=== PATIENT | male | born 1970 | race Caucasian/White ===

== ENCOUNTER 2018-01-21 13:04 | Inpatient (IN) | payer MEDICARE, OTHER ==
[~2018-01-21] VITALS: Ht 172.7 cm; Wt 165.3 kg
[2018-01-21 13:12] VITALS: BP 160/86; PULSE 75; RESP 18; TEMP 98.5; O2SAT 97
--- NOTE | 2018-01-21 13:40 | PD ---
HPI Chief Complaint: Psychiatric Symptoms Time Seen by Provider: 13:32 Travel History International Travel<30 days: No Contact w/Intl Traveler<30days: No Traveled to known affect area: No History of Present Illness HPI 47-year-old male presents to the emergency room under a Veloz act initiated by police department. Patient is a poor historian. He is difficult to extract information from. States he called 911 but did not give a reason why. When on first arrived, he asked the officer to come sit down with him. He told the officer that he wished he would leave his gun for him to use later. Patient endorses suicidal ideation at this time. States he is trying to stay calm. States he is a good person and he does not want to act out. Patient has been previously prescribed medication but refuses to describe what these medications were for. He refuses to discuss his medical problems stating that Obama probably leaked them anyway. He denies any medical complaints at this time. PFSH Past Medical History ?: Not Social History Tobacco Use: No Allergies-Medications (Allergen,Severity, Reaction): Coded Allergies: No Known Allergies (Unverified , 01/21/18) Reported Meds & Prescriptions Reported Meds & Active Scripts Active Active Prescriptions or Reported Medications Unobtainable Review of Systems Except as stated in HPI: all other systems reviewed are Neg Physical Exam Narrative GENERAL: Well-nourished, morbidly obese male in no acute distress. Afebrile. Ambulatory. SKIN: Focused skin assessment warm/dry. HEAD: Normocephalic. EYES: No scleral icterus. No injection or drainage. NECK: Supple, trachea midline. No JVD or lymphadenopathy. CARDIOVASCULAR: Regular rate and rhythm without murmurs, gallops, or rubs. RESPIRATORY: Breath sounds equal bilaterally. No accessory muscle use. PSYCHIATRIC: No delusional thought processes. No hallucinations. Flat affect. Data Data Last Documented VS Vital Signs Date Time Temp Pulse Resp B/P (MAP) Pulse Ox O2 Delivery O2 Flow Rate FiO2 01/21/18 13:12 98.5 75 18 160/86 (110) 97 Orders Orders Complete Blood Count With Diff (01/21/18 13:32) Comprehensive Metabolic Panel (01/21/18 13:32) Thyroid Stimulating Hormone (01/21/18 13:32) Drug Screen, Random Urine (01/21/18 13:32) Alcohol (Ethanol) (01/21/18 13:32) Salicylates (Aspirin) (01/21/18 13:32) Tylenol (Acetaminophen) (01/21/18 13:32) Psych Screen (01/21/18 13:32) Diet Regular Basic (01/21/18 Dinner) Admit To Inpatient Psych (01/21/18 ) Vital Signs (Adult) RAJINDER.Q12H.E (01/21/18 16:08) Activity Oob Ad Neelima (01/21/18 16:08) Lorazepam (Ativan) (01/21/18 16:15) Lorazepam Inj (Ativan Inj) (01/21/18 16:15) Acetaminophen (Tylenol) (01/21/18 16:15) Magnesium Hydroxide Liq (Milk Of Magnesi (01/21/18 16:15) Al-Mag Hy-Si 40-40-4 Mg/Ml Liq (Mag-Al P (01/21/18 16:15) Nicotine 21 Mg Patch.24 Hr (Habitrol 21 (01/21/18 17:00) Basic Metabolic Panel (Bmp) (01/22/18 06:00) Lipid Profile (01/22/18 06:00) Hemoglobin (Hgb) A1c (01/22/18 06:00) Aripiprazole (Abilify) (01/21/18 17:00) Labs Laboratory Tests Test 01/21/18 13:22 01/21/18 13:45 White Blood Count 8.5 TH/MM3 Red Blood Count 4.31 MIL/MM3 Hemoglobin 13.1 GM/DL Hematocrit 39.2 % Mean Corpuscular Volume 90.9 FL Mean Corpuscular Hemoglobin 30.3 PG Mean Corpuscular Hemoglobin Concent 33.3 % Red Cell Distribution Width 14.2 % Platelet Count 229 TH/MM3 Mean Platelet Volume 8.2 FL Neutrophils (%) (Auto) 72.3 % Lymphocytes (%) (Auto) 20.0 % Monocytes (%) (Auto) 6.3 % Eosinophils (%) (Auto) 0.8 % Basophils (%) (Auto) 0.6 % Neutrophils # (Auto) 6.2 TH/MM3 Lymphocytes # (Auto) 1.7 TH/MM3 Monocytes # (Auto) 0.5 TH/MM3 Eosinophils # (Auto) 0.1 TH/MM3 Basophils # (Auto) 0.1 TH/MM3 CBC Comment DIFF FINAL Differential Comment Blood Urea Nitrogen 13 MG/DL Creatinine 0.98 MG/DL Random Glucose 83 MG/DL Total Protein 8.1 GM/DL Albumin 3.9 GM/DL Calcium Level 8.8 MG/DL Alkaline Phosphatase 127 U/L Aspartate Amino Transf (AST/SGOT) 46 U/L Alanine Aminotransferase (ALT/SGPT) 47 U/L Total Bilirubin 0.5 MG/DL Sodium Level 139 MEQ/L Potassium Level 3.6 MEQ/L Chloride Level 105 MEQ/L Carbon Dioxide Level 23.5 MEQ/L Anion Gap 11 MEQ/L Estimat Glomerular Filtration Rate 82 ML/MIN Thyroid Stimulating Hormone 3rd Gen 1.620 uIU/ML Salicylates Level LESS THAN 1.7 MG/DL Acetaminophen Level LESS THAN 2.0 MCG/ML Ethyl Alcohol Level LESS THAN 3 MG/DL Urine Opiates Screen NEG Urine Barbiturates Screen NEG Urine Amphetamines Screen NEG Urine Benzodiazepines Screen NEG Urine Cocaine Screen NEG Urine Cannabinoids Screen POS MDM Medical Decision Making Medical Screen Exam Complete: Yes Emergency Medical Condition: Yes Medical Record Reviewed: Yes Differential Diagnosis Substance-induced mood disorder, bipolar disorder, schizophrenia Narrative Course 47-year-old male presents to the emergency room for evaluation of suicidal ideation. He called 911 and asked the railroad police to leave his gun that he could kill himself. Patient is very guarded during history and physical exam. He has a very flat affect. He admits to suicidal ideation. Denies any physical complaints. CBC and CMP are essentially unremarkable. Toxicology is negative except for cannabinoids. He is medically cleared for psychiatric evaluation. Scripts Unable to Obtain Active Prescriptions or Reported Meds Condition: Vicenta Clazada January 21, 2018 13:40
[2018-01-21 13:49] LABS: AUTOMATED NEUTROPHIL # 6.2 TH/MM3 (1.8-7.7); BASOPHIL # 0.1 TH/MM3 (0-0.2); BASOPHIL % 0.6 % (0.0-2.0); EOSINOPHIL # 0.1 TH/MM3 (0-0.4); EOSINOPHIL % 0.8 % (0.0-4.0); HEMATOCRIT 39.2 % (39.0-51.0); HEMOGLOBIN 13.1 GM/DL (13.0-17.0); LYMPHOCYTE # 1.7 TH/MM3 (1.0-4.8); MEAN CELL VOLUME 90.9 FL (80.0-100.0); MEAN CORPUSCULAR HEMOGLOBIN 30.3 PG (27.0-34.0); MEAN CORPUSCULAR HGB CONC 33.3 % (32.0-36.0); MEAN PLATELET VOLUME 8.2 FL (7.0-11.0); MONO % 6.3 % (0.0-8.0); MONOCYTE # 0.5 TH/MM3 (0-0.9); NEUT % 72.3 % (16.0-70.0); PLATELET COUNT 229 TH/MM3 (150-450); RED BLOOD COUNT 4.31 MIL/MM3 (4.50-5.90); RED CELL DISTRIBUTION WIDTH 14.2 % (11.6-17.2); WHITE BLOOD COUNT 8.5 TH/MM3 (4.0-11.0)
[2018-01-21 14:03] LABS: ALBUMIN 3.9 GM/DL (3.4-5.0); AST (GOT) 46 U/L (15-37); BICARBONATE 23.5 MEQ/L (21.0-32.0); BLOOD UREA NITROGEN 13 MG/DL (7-18); CALCIUM 8.8 MG/DL (8.5-10.1); CHLORIDE 105 MEQ/L (98-107); CREATININE 0.98 MG/DL (0.60-1.30); GLOMERULAR FILTRATION RATE 82 ML/MIN (>89); GLUCOSE,RANDOM 83 MG/DL (74-106); SODIUM (NA) 139 MEQ/L (136-145)
[2018-01-21 14:04] LABS: ALT (GPT) 47 U/L (12-78)
[2018-01-21 14:05] LABS: ACETAMINOPHEN LESS THAN 2.0 MCG/ML (10.0-30.0)
[2018-01-21 14:13] LABS: ALKALINE PHOSPHATASE 127 U/L (45-117); TOTAL BILIRUBIN ADULT 0.5 MG/DL (0.2-1.0); TOTAL PROTEIN 8.1 GM/DL (6.4-8.2)
[2018-01-21] MEDS ORDERED: LORazepam 0.5 MG TAB PO PRN (16:15)
[2018-01-21] MEDS ORDERED: LORazepam 2 MG/ML VIAL IM PRN ×2 (16:15)
[2018-01-21] MEDS ORDERED: ALUMINUM/MAGNESIUM/SIMETH 30 ML CUP PO PRN (16:15)
[2018-01-21] MEDS ORDERED: MAGNESIUM HYDROXIDE SUSP 30 ML CUP PO PRN (16:15)
--- NOTE | 2018-01-21 16:50 | HHI.HP ---
Provisional Diagnosis Admission Date January 21, 2018 at 16:10 [place] I. 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 Deferred [place] III. Obesity [place] IV. Poor insight [place] V. 35 Certification of Person's Competence To Provide Express and Informed Consent I have personally examined Danial Baca , a person being served at [facility] on, January 21, 2018 16:45. Express and informed consent means consent voluntarily given in writing, by a competent person, after sufficient explanation and disclosure of the subject matter involved to enable the person to make a knowing and willful decision without any element of force, fraud, deceit, duress, or other form of constraint or coercion. This person is 18 years of age or older, is not now known to be incompetent to consent to treatment with a guardian advocate, and does not have a health care surrogate or proxy currently making medical treatment decisions. I have found this person to be one of the following: [] Competent to provide express and informed consent, as defined above, for voluntary admission to this facility and is competent to provide express and informed consent for treatment. He/she has the consistent capacity to make well reasoned, willful, and knowing decisions concerning his or her medical or mental health treatment. The person fully and consistently understands the purpose of the admission for examination/placement and is fully capable of personally exercising all rights [place] Incompetent to provide express and informed consent to voluntary admission, and this is incompetent to provide express and informed consent to treatment. The person must be transferred to involuntary status and a petition for a guardian advocate filed with the Circuit Court. [x] Refusing to provide express and informed consent to voluntary admission but is competent to provide express and informed consent for treatment. The person must be discharged or transferred to involuntary status. Form shall be completed within 24 hours of a person's arrival at the receiving facility and filed in the clinical record of each person: 1. Admitted on a voluntary basis 2. Permitted to provide express and informed consent to his/her own treatment 3. Allowed to transfer from involuntary to voluntary status 4. Prior to permitting a person to consent to his or her own treatment after having been previously found incompetent to consent to treatment. History of Present Illness Capacity: Has Capacity HPI 47-year-old male presents to the emergency room under a Veloz act initiated by police department. Patient is a poor historian. He is difficult to extract information from. States he called 911 but did not give a reason why. When on first arrived, he asked the officer to come sit down with him. He told the officer that he wished he would leave his gun for him to use later. Patient endorses suicidal ideation at this time. States he is trying to stay calm. States he is a good person and he does not want to act out. Patient has been previously prescribed medication but refuses to describe what these medications were for. He refuses to discuss his medical problems stating that Obama probably leaked them anyway. He denies any medical complaints at this time. Review of Systems Constitutional: DENIES: Diaphoretic episodes, Fatigue, Fever, Weight gain, Weight loss, Chills, Dizziness, Change in appetite, Night Sweats Endocrine: DENIES: Heat/cold intolerance, Polydipsia, Polyuria, Polyphagia Eyes: DENIES: Blurred vision, Diplopia, Eye inflammation, Eye pain, Vision loss , Photosensitivity, Double Vision Ears, nose, mouth, throat: DENIES: Tinnitus, Hearing loss, Vertigo, Nasal discharge, Oral lesions, Throat pain, Hoarseness, Ear Pain, Running Nose, Epistaxis, Sinus Pain, Toothache, Odynophagia Respiratory: DENIES: Apneas, Cough, Snoring, Wheezing, Hemoptysis, Sputum production, Shortness of breath Cardiovascular: DENIES: Chest pain, Palpitations, Syncope, Dyspnea on Exertion , PND, Lower Extremity Edema, Orthopnea, Claudication Gastrointestinal: DENIES: Abdominal pain, Black stools, Bloody stools, Constipation, Diarrhea, Nausea, Vomiting, Difficulty Swallowing, Anorexia Genitourinary: DENIES: Sexual dysfunction, Urinary frequency, Urinary incontinence, Urgency, Hematuria, Dysuria, Nocturia, Penile Discharge, Testicular Pain, Testicular Swelling Musculoskeletal: DENIES: Joint pain, Muscle aches, Stiffness, Joint Swelling, Back pain, Neck pain Integumentary: DENIES: Abnormal pigmentation, Nail changes, Pruritus, Rash Hematologic/lymphatic: DENIES: Bruising, Lymphadenopathy Immunologic/allergic: DENIES: Eczema, Urticaria Neurologic: DENIES: Abnormal gait, Headache, Localized weakness, Paresthesias, Seizures, Speech Problems, Tremor, Poor Balance Psychiatric: DENIES: Anxiety, Confusion, Mood changes, Depression, Hallucinations, Agitation, Suicidal Ideation, Homicidal Ideation, Delusions Past Psych History Violence risk - self (6 mos) Increased Substance Abuse History Drugs/Alcohol past 12 months Patient has history of alcohol and cannabis use disorder, he used cannabis and alcohol occasionally Past Family Social History Coded Allergies: No Known Allergies (Unverified , 01/21/18) Unable to Obtain Active Prescriptions or Reported Meds Current Medications Medications (Trade) Dose Ordered Sig/Jorge Route Start Time Stop Time Status Last Admin (Ativan) 1 mg Q6H PRN PO 01/21/18 16:15 (Ativan Inj) 1 mg Q6H PRN IM 01/21/18 16:15 (Tylenol) 650 mg Q4H PRN PO 01/21/18 16:15 (Milk Of Magnesia Liq) 30 ml DAILY PRN PO 01/21/18 16:15 (Mag-Al Plus Susp Liq) 30 ml Q6H PRN PO 01/21/18 16:15 (Habitrol 21 Mg Patch.24 Hr) 1 patch DAILY T-DERMAL 01/21/18 17:00 (Abilify) 5 mg DAILY PO 01/21/18 17:00 Family Psych History No family psychiatric history Social History Patient was born and raised in [place], he lives in the [place] with his mother, he is single, unemployed, supported by [facility], his highest level of education is 11th grade Patient's Strengths (min. 2) Family support, no violent Physical Exam No tremors, no EPS, no psychomotor agitation retardation, no catatonia, no stiffness Vital Signs Vital Signs Date Time Temp Pulse Resp B/P (MAP) Pulse Ox O2 Delivery O2 Flow Rate FiO2 01/21/18 13:12 98.5 75 18 160/86 (110) 97 Lab Results Test 01/21/18 13:22 01/21/18 13:45 White Blood Count 8.5 TH/MM3 Red Blood Count 4.31 MIL/MM3 Hemoglobin 13.1 GM/DL Hematocrit 39.2 % Mean Corpuscular Volume 90.9 FL Mean Corpuscular Hemoglobin 30.3 PG Mean Corpuscular Hemoglobin Concent 33.3 % Red Cell Distribution Width 14.2 % Platelet Count 229 TH/MM3 Mean Platelet Volume 8.2 FL Neutrophils (%) (Auto) 72.3 % Lymphocytes (%) (Auto) 20.0 % Monocytes (%) (Auto) 6.3 % Eosinophils (%) (Auto) 0.8 % Basophils (%) (Auto) 0.6 % Neutrophils # (Auto) 6.2 TH/MM3 Lymphocytes # (Auto) 1.7 TH/MM3 Monocytes # (Auto) 0.5 TH/MM3 Eosinophils # (Auto) 0.1 TH/MM3 Basophils # (Auto) 0.1 TH/MM3 CBC Comment DIFF FINAL Differential Comment Blood Urea Nitrogen 13 MG/DL Creatinine 0.98 MG/DL Random Glucose 83 MG/DL Total Protein 8.1 GM/DL Albumin 3.9 GM/DL Calcium Level 8.8 MG/DL Alkaline Phosphatase 127 U/L Aspartate Amino Transf (AST/SGOT) 46 U/L Alanine Aminotransferase (ALT/SGPT) 47 U/L Total Bilirubin 0.5 MG/DL Sodium Level 139 MEQ/L Potassium Level 3.6 MEQ/L Chloride Level 105 MEQ/L Carbon Dioxide Level 23.5 MEQ/L Anion Gap 11 MEQ/L Estimat Glomerular Filtration Rate 82 ML/MIN Thyroid Stimulating Hormone 3rd Gen 1.620 uIU/ML Salicylates Level LESS THAN 1.7 MG/DL Acetaminophen Level LESS THAN 2.0 MCG/ML Ethyl Alcohol Level LESS THAN 3 MG/DL Urine Opiates Screen NEG Urine Barbiturates Screen NEG Urine Amphetamines Screen NEG Urine Benzodiazepines Screen NEG Urine Cocaine Screen NEG Urine Cannabinoids Screen POS Mental Status Examination Appearance: Dirty, Disheveled Consciousness: Alert Orientation: x4 Motor Activity: Normal gait Speech: Unremarkable Language: Adequate Fund of Knowledge: Adequate Attention and Concentration: Adequate Memory: Unremarkable Mood: Appropriate Affect: Appropriate Thought Process & Associations: Loose associations, Disorganized Thought Content: Bizarre thinking Hallucination Type: None Delusion Type: Bizarre, Paranoid Suicidal Ideation: No Suicidal Plan: No Suicidal Intention: No Homicidal Ideation: No Homicidal Plan: No Homicidal Intention: No Insight: Poor Judgment: Poor Assessment & Plan Problem List: (1) Schizoaffective disorder ICD Codes: F25.9 - Schizoaffective disorder, unspecified Assessment & Plan: Patient is acutely psychotic. Disorganized, paranoid, internally preoccupied, noncompliant with psychotropics with prominent reality distortion. He needs psychiatric hospitalization for stabilization. We will start Abilify 5 mg at bedtime. Consult psychiatry for second opinion. Transfer patient to 26[address] the unit. Brief supportive psychotherapy, psychoeducation and motivation provided. 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 Assessment & Plan Estimated LOS: Jeffry Bundy MD January 21, 2018 16:50
[2018-01-21] MEDS: NICOTINE 21 MG/24 HR PATCH T-DERMAL SCH (17:00)
[2018-01-21 17:25] VITALS: BP 132/60; PULSE 80; RESP 20; TEMP 98.9; O2SAT 95
[2018-01-21 18:20] VITALS: BP 144/67; PULSE 80; RESP 18; TEMP 98.7; O2SAT 95
[2018-01-21] MEDS: ARIPiprazole 5 MG TAB PO SCH (18:29)
[2018-01-22 06:40] VITALS: BP 128/73; PULSE 74; RESP 18; TEMP 97.6; O2SAT 99
[2018-01-22] MEDS: NICOTINE 21 MG/24 HR PATCH T-DERMAL SCH (09:00)
[2018-01-22] MEDS: ARIPiprazole 5 MG TAB PO SCH (10:12)
[2018-01-22 12:36] LABS: BICARBONATE 25.8 MEQ/L (21.0-32.0); BLOOD UREA NITROGEN 16 MG/DL (7-18); CALCIUM 8.9 MG/DL (8.5-10.1); CHLORIDE 105 MEQ/L (98-107); CHOLESTEROL 144 MG/DL (120-200); CHOLESTEROL/ HDL RATIO 4.98 RATIO; CREATININE 0.95 MG/DL (0.60-1.30); GLOMERULAR FILTRATION RATE 85 ML/MIN (>89); GLUCOSE,RANDOM 90 MG/DL (74-106); HDL CHOLESTEROL 28.9 MG/DL (40.0-60.0); LDL CHOLESTEROL 84 MG/DL (0-99); SODIUM (NA) 139 MEQ/L (136-145); TRIGLYCERIDES 154 MG/DL (42-150)
--- NOTE | 2018-01-22 15:31 | HHI.PYPN ---
Subjective Remarks Chart reviewed and discussed with nursing staff. Patient is lying in his bed, naked under the covers. Nursing staff report that he has been out of his room naked or with a towel covering his private area. They have had to redirect him several times. Urvashi RN and I spoke with patient, he demanded that we get his shoes (Crocs) now because he has a metal robbin in his leg and he needs them to walk. He also wanted a phone number out of his cell phone. When we did not stop to retrieve these items he became belligerent and loud. He was kicking the wall and using inappropriate language. He was medicated with Atrax and did calm. He denies AVH. Denies SI/HI. Demanding a definitive answer regarding his exact discharge date. Mental Status Examination Appearance: Dirty, Disheveled Consciousness: Alert Orientation: x4 Motor Activity: Normal gait Speech: Unremarkable Language: Adequate Fund of Knowledge: Adequate Attention and Concentration: Adequate Memory: Unremarkable Mood: Appropriate Affect: Appropriate Thought Process & Associations: Loose associations, Disorganized Thought Content: Bizarre thinking Hallucination Type: None Delusion Type: Bizarre, Paranoid Suicidal Ideation: No Suicidal Plan: No Suicidal Intention: No Homicidal Ideation: No Homicidal Plan: No Homicidal Intention: No Insight: Poor Judgment: Poor Results Labs Test 01/22/18 11:08 Blood Urea Nitrogen 16 MG/DL Creatinine 0.95 MG/DL Random Glucose 90 MG/DL Calcium Level 8.9 MG/DL Sodium Level 139 MEQ/L Potassium Level 4.4 MEQ/L Chloride Level 105 MEQ/L Carbon Dioxide Level 25.8 MEQ/L Anion Gap 8 MEQ/L Estimat Glomerular Filtration Rate 85 ML/MIN Triglycerides Level 154 MG/DL Cholesterol Level 144 MG/DL LDL Cholesterol 84 MG/DL HDL Cholesterol 28.9 MG/DL Cholesterol/HDL Ratio 4.98 RATIO Vitals/IOs Vital Signs Date Time Temp Pulse Resp B/P (MAP) Pulse Ox O2 Delivery O2 Flow Rate FiO2 01/22/18 06:40 97.6 74 18 128/73 (91) 99 01/21/18 17:25 Room Air Intake and Output 01/22/18 01/22/18 01/23/18 08:00 16:00 00:00 Intake Total 720 ml Balance 720 ml Assessment & Plan Problem List: (1) Schizoaffective disorder ICD Codes: F25.9 - Schizoaffective disorder, unspecified Assessment & Plan: Patient very agitated today. Demanding his shoes and cell phone. When the staff did not leija to obtain his things he started yelling and acting out. Staff also report that he has been leaving his room naked or with a towel covering his private area. He told staff that he will only speak with his mother. He denies auditory and visual hallucinations. He states he is medication compliant and that the provider should note this in his chart. He continues to be paranoid and demonstrates little insight to his mental illness. Assessment & Plan Estimated LOS: days Justification for Cont. Inpt. Moving this patient to a lower level of care may result in his decompensation. Elle Smith January 22, 2018 15:31
[2018-01-22 18:00] VITALS: BP 158/81; PULSE 84; RESP 19; TEMP 97.5; O2SAT 98
[2018-01-23] MEDS: LORazepam 1 MG TAB PO PRN ×2 (04:52→21:23)
[2018-01-23 05:12] VITALS: BP 154/91; PULSE 72; RESP 18; TEMP 97.9; O2SAT 97
[2018-01-23] MEDS: NICOTINE 21 MG/24 HR PATCH T-DERMAL SCH (09:00)
[2018-01-23] MEDS: ARIPiprazole 5 MG TAB PO SCH (09:29)
--- NOTE | 2018-01-23 12:32 | PD.PSY.CON ---
Provisional Diagnosis Admission Date January 21, 2018 at 16:10 Alexander I. 1. Schizoaffective disorder, bipolar type 2. Urine toxicology positive for cannabinoids Alexander II. 1. Rule out some degree of intellectual disability History of Present Illness Service Psychiatry Consult Requested By Dr. Yoon Reason for Consult Second opinion for involuntary psychiatric hospitalization Primary Care Physician Unknown HPI From Dr. Yoon's H&P: 47-year-old male presents to the emergency room under a Veloz act initiated by police department. Patient is a poor historian. He is difficult to extract information from. States he called 911 but did not give a reason why. When on first arrived, he asked the officer to come sit down with him. He told the officer that he wished he would leave his gun for him to use later. Patient endorses suicidal ideation at this time. States he is trying to stay calm. States he is a good person and he does not want to act out. Patient has been previously prescribed medication but refuses to describe what these medications were for. He refuses to discuss his medical problems stating that Obama probably leaked them anyway. He denies any medical complaints at this time. On my examination today, 01/23: Patient seen and examined. Chart reviewed. Case discussed with nursing staff. On my examination today, patient presents as quite irritable and demanding. He seems quite paranoid and refuses to sit for the interview. I endeavor to introduce myself and discuss the purpose of my evaluation, but the patient refuses to speak with me at this time, saying he needs to speak with his mother. He seems somewhat intellectually limited on exam, and his frustration tolerance is quite poor. After rebuffing my efforts to speak with him, he follows me in the hallway and blocks my entrance into the nursing station for a time in a fairly menacing manner. He then harangues me through the nursing station glass. He tells me in a fairly threatening manner, "you'll have your time." Psychiatric interview is limited because of patient's uncooperativeness , and I am unable to obtain any meaningful past psychiatric, family, chemical dependency or social history for the same reason. No evident side effects from medications. No physical complaints. Review of Systems ROS Limitations: Uncooperative, Psychotic, Poor Historian Except as stated in HPI: all other systems reviewed are Neg Past Family Social History Coded Allergies: No Known Allergies (Unverified , 01/21/18) Past Medical History See EMR. Unable to Obtain Active Prescriptions or Reported Meds Current Medications Medications (Trade) Dose Ordered Sig/Jorge Route Start Time Stop Time Status Last Admin (Ativan) 1 mg Q6H PRN PO 01/21/18 16:15 01/23/18 04:52 (Ativan Inj) 1 mg Q6H PRN IM 01/21/18 16:15 (Tylenol) 650 mg Q4H PRN PO 01/21/18 16:15 (Milk Of Magnesia Liq) 30 ml DAILY PRN PO 01/21/18 16:15 (Mag-Al Plus Susp Liq) 30 ml Q6H PRN PO 01/21/18 16:15 (Habitrol 21 Mg Patch.24 Hr) 1 patch DAILY T-DERMAL 01/21/18 17:00 (Abilify) 5 mg DAILY PO 01/21/18 17:00 01/23/18 09:29 Patient's Strengths (min. 2) In a monitored setting. Verbally fluent. Physical Exam Physical examination completed by ED provider. On my examination today, the patient appears to be in no acute physical distress. No motor abnormalities noted. Labs and vitals reviewed: Vital Signs Vital Signs Date Time Temp Pulse Resp B/P (MAP) Pulse Ox O2 Delivery O2 Flow Rate FiO2 01/23/18 05:12 97.9 72 18 154/91 (112) 97 01/21/18 17:25 Room Air Lab Results Laboratory Tests Test 01/21/18 13:22 01/21/18 13:45 01/22/18 11:08 White Blood Count 8.5 TH/MM3 Red Blood Count 4.31 MIL/MM3 Hemoglobin 13.1 GM/DL Hematocrit 39.2 % Mean Corpuscular Volume 90.9 FL Mean Corpuscular Hemoglobin 30.3 PG Mean Corpuscular Hemoglobin Concent 33.3 % Red Cell Distribution Width 14.2 % Platelet Count 229 TH/MM3 Mean Platelet Volume 8.2 FL Neutrophils (%) (Auto) 72.3 % Lymphocytes (%) (Auto) 20.0 % Monocytes (%) (Auto) 6.3 % Eosinophils (%) (Auto) 0.8 % Basophils (%) (Auto) 0.6 % Neutrophils # (Auto) 6.2 TH/MM3 Lymphocytes # (Auto) 1.7 TH/MM3 Monocytes # (Auto) 0.5 TH/MM3 Eosinophils # (Auto) 0.1 TH/MM3 Basophils # (Auto) 0.1 TH/MM3 CBC Comment DIFF FINAL Differential Comment Blood Urea Nitrogen 13 MG/DL 16 MG/DL Creatinine 0.98 MG/DL 0.95 MG/DL Random Glucose 83 MG/DL 90 MG/DL Total Protein 8.1 GM/DL Albumin 3.9 GM/DL Calcium Level 8.8 MG/DL 8.9 MG/DL Alkaline Phosphatase 127 U/L Aspartate Amino Transf (AST/SGOT) 46 U/L Alanine Aminotransferase (ALT/SGPT) 47 U/L Total Bilirubin 0.5 MG/DL Sodium Level 139 MEQ/L 139 MEQ/L Potassium Level 3.6 MEQ/L 4.4 MEQ/L Chloride Level 105 MEQ/L 105 MEQ/L Carbon Dioxide Level 23.5 MEQ/L 25.8 MEQ/L Thyroid Stimulating Hormone 3rd Gen 1.620 uIU/ML Salicylates Level LESS THAN 1.7 MG/DL Acetaminophen Level LESS THAN 2.0 MCG/ML Ethyl Alcohol Level LESS THAN 3 MG/DL Urine Opiates Screen NEG Urine Barbiturates Screen NEG Urine Amphetamines Screen NEG Urine Benzodiazepines Screen NEG Urine Cocaine Screen NEG Urine Cannabinoids Screen POS Anion Gap 8 MEQ/L Estimat Glomerular Filtration Rate 85 ML/MIN Hemoglobin A1c 5.6 % Triglycerides Level 154 MG/DL Cholesterol Level 144 MG/DL LDL Cholesterol 84 MG/DL HDL Cholesterol 28.9 MG/DL Cholesterol/HDL Ratio 4.98 RATIO Mental Status Examination Appearance: Disheveled Consciousness: Alert Orientation: x4 Motor Activity: Normal gait Speech: Unremarkable Language: Adequate Fund of Knowledge: Inadequate Attention and Concentration: Adequate Memory: Unremarkable Mood: Appropriate Affect: Appropriate Thought Process & Associations: Other (Perseverative) Thought Content: Delusional Hallucination Type: None Delusion Type: Paranoid Suicidal Ideation: No (Unreliable to contract for safety) Homicidal Ideation: No Insight: Poor Judgment: Poor Assessment & Plan Problem List: (1) Schizoaffective disorder ICD Codes: F25.9 - Schizoaffective disorder, unspecified Assessment & Plan Given the circumstances of the patient's presentation here and his presentation on my examination today, I concur with Dr. Yoon that the patient meets criteria for involuntary psychiatric hospitalization under the Veloz act. I have completed the second opinion paperwork. I will titrate patient's Abilify to 10mg daily to target psychosis. Continue to monitor on the inpatient unit; low threshold for transfer to higher acuity unit should behavior deteriorate. Continue other medications and care as ordered. Discharge Planning Pending psychiatric stabilization. Patient requires ongoing hospitalization secondary to: med changes. Impairment in reality construction. Risk for decompensation in less restrictive environment. Problem Qualifiers (1) Schizoaffective disorder: Qualified Codes: F25.0 - Schizoaffective disorder, bipolar type German Titus MD January 23, 2018 12:32
[2018-01-23 13:12] LABS: HEMOGLOBIN A1C 5.6 % (4.3-6.0)
[2018-01-23 19:04] VITALS: BP 108/56; PULSE 66; RESP 18; TEMP 98.1; O2SAT 97
[2018-01-24] MEDS: LORazepam 1 MG TAB PO PRN ×3 (03:11→20:13)
[2018-01-24 07:10] VITALS: BP 133/75; PULSE 70; RESP 18; TEMP 98; O2SAT 99
[2018-01-24] MEDS: NICOTINE 21 MG/24 HR PATCH T-DERMAL SCH (09:00)
[2018-01-24] MEDS: ARIPiprazole 5 MG TAB PO SCH (09:23)
[2018-01-24] MEDS: ACETAMINOPHEN 325 MG TAB PO PRN ×2 (11:45→20:12)
--- NOTE | 2018-01-24 14:44 | HHI.PYPN ---
Subjective Remarks Reviewed electronic medical records and discuss case with staff. Staff reports the patient has remained guarded and suspicious. They report he has been a little more polite and a little less demanding. He is overly compliant with his Ativan requesting it every 6 hours "on the diet". Follow-up was performed and day room. Patient was found on the phone. When asked if I were able to talk to him patient replied, "for what?". When I explained to him my purpose he stated "I am fine that is all you are going to get from me". Mental Status Examination Appearance: Disheveled Consciousness: Alert Orientation: x4 Motor Activity: Normal gait Speech: Unremarkable Language: Adequate Fund of Knowledge: Inadequate Attention and Concentration: Adequate Memory: Unremarkable Mood: Appropriate Affect: Appropriate Thought Process & Associations: Other (Perseverative) Thought Content: Delusional Hallucination Type: None Delusion Type: Paranoid Suicidal Ideation: No (Unreliable to contract for safety) Homicidal Ideation: No Insight: Poor Judgment: Poor Results Vitals/IOs Vital Signs Date Time Temp Pulse Resp B/P (MAP) Pulse Ox O2 Delivery O2 Flow Rate FiO2 01/24/18 07:10 98.0 70 18 133/75 (94) 99 01/21/18 17:25 Room Air Assessment & Plan Problem List: (1) Schizoaffective disorder ICD Codes: F25.9 - Schizoaffective disorder, unspecified Assessment & Plan Estimated LOS: Patient will be really reevaluated by a psychiatrist tomorrow. Continue with treatment plan as ordered. Days Justification for Cont. Inpt. Moving this patient to a lower level of care would likely result in decompensation. Problem Qualifiers (1) Schizoaffective disorder: Qualified Codes: F25.0 - Schizoaffective disorder, bipolar type Micaela De Leon January 24, 2018 14:44
[2018-01-24 18:18] VITALS: BP 120/80; PULSE 80; RESP 18; TEMP 98; O2SAT 96
[2018-01-25] MEDS: LORazepam 1 MG TAB PO PRN (04:20)
[2018-01-25 06:15] VITALS: BP 132/70; PULSE 61; RESP 20; TEMP 97.6; O2SAT 96
[2018-01-25] MEDS: NICOTINE 21 MG/24 HR PATCH T-DERMAL SCH (09:00)
[2018-01-25] MEDS: ARIPiprazole 5 MG TAB PO SCH (09:21)
[2018-01-25] MEDS: ACETAMINOPHEN 325 MG TAB PO PRN (13:41)
[2018-01-25] MEDS ORDERED: ARIP1TAB12 PO (15:11)
--- NOTE | 2018-01-25 15:11 | HHI.DS ---
Psychiatry Discharge Summary Inpatient Psychiatric care?: Yes Advance Directive: No Mental Health AdvanceDirective: No Health Care Proxy: No Admission Admission Date January 21, 2018 at 16:10 Admission Diagnosis: (1) Schizoaffective disorder ICD Code: F25.9 - Schizoaffective disorder, unspecified Brief History From Dr. Yoon's H&P: 47-year-old male presents to the emergency room under a Veloz act initiated by police department. Patient is a poor historian. He is difficult to extract information from. States he called 911 but did not give a reason why. When on first arrived, he asked the officer to come sit down with him. He told the officer that he wished he would leave his gun for him to use later. Patient endorses suicidal ideation at this time. States he is trying to stay calm. States he is a good person and he does not want to act out. Patient has been previously prescribed medication but refuses to describe what these medications were for. He refuses to discuss his medical problems stating that Obama probably leaked them anyway. He denies any medical complaints at this time. On my examination today, 01/23: Patient seen and examined. Chart reviewed. Case discussed with nursing staff. On my examination today, patient presents as quite irritable and demanding. He seems quite paranoid and refuses to sit for the interview. I endeavor to introduce myself and discuss the purpose of my evaluation, but the patient refuses to speak with me at this time, saying he needs to speak with his mother. He seems somewhat intellectually limited on exam, and his frustration tolerance is quite poor. After rebuffing my efforts to speak with him, he follows me in the hallway and blocks my entrance into the nursing station for a time in a fairly menacing manner. He then harangues me through the nursing station glass. He tells me in a fairly threatening manner, "you'll have your time." Psychiatric interview is limited because of patient's uncooperativeness , and I am unable to obtain any meaningful past psychiatric, family, chemical dependency or social history for the same reason. No evident side effects from medications. No physical complaints. Results Blood Pressure 132 / 70 Vital Signs Date Time Temp Pulse Resp B/P (MAP) Pulse Ox O2 Delivery O2 Flow Rate FiO2 01/25/18 06:15 97.6 61 20 132/70 (90) 96 5/25/18 17:25 Room Air Laboratory Results Test 01/22/18 11:08 Cholesterol Level 144 MG/DL (120-200) HDL Cholesterol 28.9 MG/DL (40.0-60.0) Hemoglobin A1c 5.6 % (4.3-6.0) LDL Cholesterol 84 MG/DL (0-99) Triglycerides Level 154 MG/DL (42-150) Medications Approp Antipsych med options 1 - Minimum of three failed multiple trials of monotherapy. 2 - Documented plan to taper to monotherapy due to previous use of multiple meds OR cross-taper in progress at D/C. 3 - Documentation of augmentation of Clozapine. 4 - Justification other than those listed in allowable values 1-3, document here : Discharge Pt Condition on Discharge: Stable Discharge Disposition: Discharge Home Discharge Instructions Diet Instructions: As Tolerated, No Restrictions Activities you can perform: Regular-No Restrictions Scheduled Appointment: Dr Brock Appointment Date: January 25, 2018 Appointment Time: 7:00pm Mental Status Examination Appearance: Disheveled Consciousness: Alert Orientation: x4 Motor Activity: Normal gait Speech: Unremarkable Language: Adequate Fund of Knowledge: Inadequate Attention and Concentration: Adequate Memory: Unremarkable Mood: Appropriate Affect: Appropriate Thought Process & Associations: Other (Perseverative) Thought Content: Delusional Hallucination Type: None Delusion Type: Paranoid Suicidal Ideation: No (Unreliable to contract for safety) Homicidal Ideation: No Insight: Poor Judgment: Poor Discharge/Advance Care Plan Health Problems: (1) Schizoaffective disorder Goals to promote your health * To prevent worsening of your condition and complications * To maintain your health at the optimal level Directions to meet your goals Take your medications as prescribed Follow your dietary instruction Follow activity as directed Keep your appointments as scheduled Take your immunizations and boosters as scheduled If your symptoms worsen call your PCP, if no PCP go to Urgent Care Center or Emergency Room For 22/03 questions related to your inpatient stay or results of tests pending at discharge, please contact Dr. Sina Sofia at Smoking is Dangerous to Your Health. Avoid second hand smoking Problem Qualifiers (1) Schizoaffective disorder: Qualified Codes: F25.0 - Schizoaffective disorder, bipolar type Sina Sofia MD January 25, 2018 15:11
== END 2018-01-25 16:00 | disposition home or self-care (01) | DRG 885 ==
LOC: NEPJ 13:04 → NEDA 16:10 → H260 18:00
PROVIDERS: ADMIT Student in an Organized Health Care Education/Training Program; ATTEND Student in an Organized Health Care Education/Training Program
DX: F25.0 Schizoaffective disorder, bipolar type (principal); R45.851 Suicidal ideations; Z68.43 Body mass index [BMI] 50.0-59.9, adult; E66.01 Morbid (severe) obesity due to excess calories; F12.90 Cannabis use, unspecified, uncomplicated; Z91.14 Patient's other noncompliance with medication regimen
CPT/HCPCS: 80048; 80053; 80061; 80307; 83036; 84443; 85025; 99285